=== PATIENT | male | born 1965 | race Hispanic/Latino ===

== ENCOUNTER 2017-08-04 10:48 | Emergency (ER) | payer BC ==
[2017-08-04] MEDS ORDERED: NACL 0.9% 1000 ML 1,000 ML ONE (11:56)
[2017-08-04] MEDS ORDERED: NACL 0.9% 1000 ML 1,000 ML IV ONE ×2 (12:02→14:29)
--- NOTE | 2017-08-04 12:12 | Emergency Department Report ---
ED Syncope HPI - General Chief Complaint: Syncope Stated Complaint: LOW BP Time Seen by Provider: 08/04/17 12:01 Source: patient Exam Limitations: no limitations - History of Present Illness Initial Comments: 51 year old male with a past medical history of hypertension presents to hospital status post syncopal episode while standing at work. Patient said he felt lightheaded and passed out. Denies any headache, chest pain, shortness of breath, or abdominal pain. Yesterday patient had nausea and vomiting approximately 3 episodes. He states he's been eating and drinking since. Several weeks ago patient has symptoms of nausea, vomiting, and diarrhea and abdominal pain. Patient followed up yesterday with his primary care doctor to obtain results from that illness and happened to have recurrent nausea and vomiting at the time. This is the official diagnosis was food poisoning. Paperwork from office states that received IV fluids yesterday in office but patient denies receiving an IV or fluids. Patient denies any pain or symptoms at this time He has not had any nausea, vomiting, or diarrhea today. He did take his lisinopril 20 mg this morning and presents to the ER with low blood pressure. PMD: Dr. Monahan - Related Data Allergies/Adverse Reactions: Allergies No Known Allergies Allergy (Unverified 08/04/17 11:46) Home Medications: Ambulatory Orders Ondansetron [Zofran Odt] 4 mg PO Q8HR PRN #15 tab.rapdis 08/04/17 ED Review of Systems ROS: Stated complaint: LOW BP Other details as noted in HPI Comment: All other systems reviewed and negative Other: Constitutional: No fevers chills Eyes: No eye pain visual changes ENT: No ear pain or throat pain Neck: Denies pain Respiratory: Denies cough wheezing shortness of breath Cardiovascular: Denies chest pain, palpitations GI: As per HPI : Denies dysuria Musculoskeletal: Denies back pain Skin: Denies rash, lesions, erythema Neurologic: Denies headache, numbness, weakness Psychiatric: Denies suicidal ideation, hallucinations ED Past Medical Hx - Past Medical History Hx Hypertension: Yes Additional medical history: recent food poisoning - Social History Smoking Status: Current Every Day Smoker Substance Use Type: None - Medications Home Medications: Home Medications Medication Instructions Recorded Confirmed Last Taken Type Ondansetron [Zofran Odt] 4 mg PO Q8HR PRN #15 tab.rapdis 08/04/17 Unknown Rx ED Physical Exam - General Limitations: No Limitations - Other Other exam information: General: No limitations, patient is alert in no acute distress Head exam: Atraumatic, normocephalic Eyes exam: Normal appearance ENT: Moist mucous membrane, normal oropharynx Neck exam: Normal inspection, full range of motion, no meningismus nontender Respiratory exam: Clear to auscultation bilateral, no wheezes, rales, crackles Cardiovascular: Normal rate and rhythm, normal heart sounds Abdomen: Soft, nondistended, and nontender, with normal bowel sounds, no rebound, or guarding Extremity: Full range of motion normal inspection no deformity Back: Normal Inspection, full range of motion, no tenderness Neurologic: Alert, oriented x3, cranial nerves intact, no motor or sensory deficit Psychiatric: normal affect, normal mood Skin: Warm, dry, intact ED Course Vital Signs 08/04/17 08/04/17 08/04/17 11:46 12:18 13:26 Temperature 98.1 F Pulse Rate 104 H 96 H 95 H Pulse Rate [ Lying] Respiratory 16 16 16 Rate Blood Pressure 88/58 Blood Pressure 92/58 110/75 [Left] Blood Pressure [Lying] O2 Sat by Pulse 97 99 Oximetry 08/04/17 14:08 Temperature Pulse Rate Pulse Rate [ 91 H Lying] Respiratory Rate Blood Pressure Blood Pressure [Left] Blood Pressure 110/57 [Lying] O2 Sat by Pulse Oximetry - Reevaluation(s) Reevaluation #1: 08/04/17 14:33 Patient received 1 liter of IV fluids. Heart rate still increases with standing however, no longer signs of hypotension. Patient refuses further treatment and further IV fluids at this time. He states he is feeling better. ED Medical Decision Making - Lab Data Result diagrams: 08/04/17 12:22 08/04/17 12:26 Lab Results 08/04/17 08/04/17 08/04/17 Range/Units 12:22 12:26 12:26 WBC 8.0 (4.5-11.0) K/mm3 RBC 4.20 (3.65-5.03) M/mm3 Hgb 12.1 (11.8-15.2) gm/dl Hct 36.3 (35.5-45.6) % MCV 86 (84-94) fl MCH 29 (28-32) pg MCHC 33 (32-34) % RDW 14.3 (13.2-15.2) % Plt Count 207 (140-440) K/mm3 Lymph % (Auto) 18.3 (13.4-35.0) % [place] % (Auto) 6.2 (0.0-7.3) % Eos % (Auto) 0.3 (0.0-4.3) % Baso % (Auto) 0.9 (0.0-1.8) % Lymph # 1.5 (1.2-5.4) K/mm3 [place] # 0.5 (0.0-0.8) K/mm3 Eos # 0.0 (0.0-0.4) K/mm3 Baso # 0.1 (0.0-0.1) K/mm3 Seg Neutrophils % 74.3 H (40.0-70.0) % Seg Neutrophils # 5.9 (1.8-7.7) K/mm3 Sodium 142 (137-145) mmol/L Potassium 4.4 (3.6-5.0) mmol/L Chloride 102.5 (98-107) mmol/L Carbon Dioxide 27 (22-30) mmol/L Anion Gap 17 mmol/L BUN 38 H (9-20) mg/dL Creatinine 0.9 (0.8-1.5) mg/dL Estimated GFR > 60 ml/min BUN/Creatinine Ratio 42 % Glucose 93 (75-100) mg/dL Calcium 8.7 (8.4-10.2) mg/dL Total Bilirubin 0.30 (0.1-1.2) mg/dL AST 8 (5-40) units/L ALT 7 (7-56) units/L Alkaline Phosphatase 67 (35-129) units/L Total Creatine Kinase 50 L (55-170) units/L CK-MB (CK-2) 1.4 (0.0-4.0) ng/mL CK-MB (CK-2) Rel Index 2.8 (0-4) Troponin T < 0.010 (0.00-0.029) ng/mL Total Protein 5.5 L (6.3-8.2) g/dL Albumin 3.5 L (3.9-5) g/dL Albumin/Globulin Ratio 1.8 % Lipase 17 (13-60) units/L - EKG Data -: EKG Interpreted by Me EKG shows normal: sinus rhythm (97), axis (38), QRS complexes (98), ST-T waves ( no stemi/t inv) - EKG Data When compared to previous EKG there are: previous EKG unavailable - Medical Decision Making Patient's syncopal episode likely related to volujme depletion given the recent GI symptoms. BUN is elevated compared to creatinine suggesting dehydration. Hypotension improved with IV fluids. Plan to give additional IV fluids due to persistent increased heart rate with standing but patient declined. Patient signing out against medical advise but educated to continue drinking or fluids throughout the day and to return his symptoms worsen. Patient also encouraged to follow up with his primary care doctor. - Differential Diagnosis gastroenteritis, anemia, dehydration, arrhythmia Critical Care Time: No Critical care attestation.: If time is entered above; I have spent that time in minutes in the direct care of this critically ill patient, excluding procedure time. ED Disposition Clinical Impression: Dehydration, Syncope and collapse Disposition: DC-07 LEFT AGAINST MED ADVICE Is pt being admited?: No Does the pt Need Aspirin: No Condition: Stable Instructions: Syncope (ED), Dehydration (ED) Additional Instructions: You are signing out AGAINST MEDICAL ADVICE because additional IV fluids was recommended. Continue to drink plenty of fluids at home. Follow-up with your doctor as soon as possible further evaluation and treatment Prescriptions: Ondansetron [Zofran Odt] 4 mg PO Q8HR PRN #15 tab.rapdis PRN Reason: Nausea And Vomiting Referrals: PRIMARY CARE, [Primary Care Provider] - BRIANA Forms: AMA Form Time of Disposition: 14:36
[2017-08-04 12:40] LABS: Basophils # (Auto) 0.1 K/mm3 (0.0-0.1); Basophils % (Auto) 0.9 % (0.0-1.8); Eosinophils % (Auto) 0.3 % (0.0-4.3); Hematocrit 36.3 % (35.5-45.6); Hemoglobin 12.1 gm/dl (11.8-15.2); Lymphocytes # (Auto) 1.5 K/mm3 (1.2-5.4); Lymphocytes % (Auto) 18.3 % (13.4-35.0); Mean Corpuscular HGB Conc 33 % (32-34); Mean Corpuscular Hemoglobin 29 pg (28-32); Mean Corpuscular Volume 86 fl (84-94); Monocytes # (Auto) 0.5 K/mm3 (0.0-0.8); Monocytes % (Auto) 6.2 % (0.0-7.3); Platelet Count 207 K/mm3 (140-440); Red Cell Distribution Width 14.3 % (13.2-15.2)
[2017-08-04 12:54] LABS: Creatine Kinase MB 1.4 ng/mL (0.0-4.0)
[2017-08-04 12:55] LABS: Alanine Aminotransferase 7 units/L (7-56); Albumin 3.5 g/dL (3.9-5); BUN/Creatinine Ratio 42; Blood Urea Nitrogen 38 mg/dL (9-20); Calcium 8.7 mg/dL (8.4-10.2); Hemolysis Index 6
[2017-08-04 14:11] VITALS: BP 110/57
== END 2017-08-04 14:51 | disposition left against medical advice (07) ==
LOC: ED 10:48
DX: E86.0 Dehydration (principal); R55 Syncope and collapse; I10 Essential (primary) hypertension; F17.200 Nicotine dependence, unspecified, uncomplicated
CPT/HCPCS: 36415; 80053; 82550; 82553; 83690; 84484; 85025; 93005; 93010; 96360; 99284; J7030

== ENCOUNTER 2017-08-05 11:48 | Inpatient (IN) | payer BC ==
--- NOTE | 2017-08-05 12:35 | Cat Scan Report ---
CT scan of head without IV contrast: History: Injury. Findings: Ventricles are normal in size and midline in location. Mild volume loss. No evidence of acute ischemia, hemorrhage or mass. No extra-axial fluid collection. Normal brainstem and cerebellum. Impression: No acute intracranial abnormality.
[2017-08-05 12:50] LABS: Basophils # (Auto) 0.1 K/mm3 (0.0-0.1); Basophils % (Auto) 0.8 % (0.0-1.8); Eosinophils # (Auto) 0.1 K/mm3 (0.0-0.4); Eosinophils % (Auto) 1.4 % (0.0-4.3); Hematocrit 27.5 % (35.5-45.6); Hemoglobin 8.9 gm/dl (11.8-15.2); Lymphocytes # (Auto) 1.7 K/mm3 (1.2-5.4); Lymphocytes % (Auto) 16.6 % (13.4-35.0); Mean Corpuscular HGB Conc 32 % (32-34); Mean Corpuscular Hemoglobin 28 pg (28-32); Mean Corpuscular Volume 87 fl (84-94); Monocytes # (Auto) 0.4 K/mm3 (0.0-0.8); Monocytes % (Auto) 3.9 % (0.0-7.3); Platelet Count 195 K/mm3 (140-440); Red Blood Count 3.17 M/mm3 (3.65-5.03); Red Cell Distribution Width 14.3 % (13.2-15.2)
[2017-08-05 12:59] LABS: Alanine Aminotransferase 7 units/L (7-56); Albumin 2.9 g/dL (3.9-5); BUN/Creatinine Ratio 43; Blood Urea Nitrogen 26 mg/dL (9-20); Calcium 7.9 mg/dL (8.4-10.2); Hemolysis Index 3
[2017-08-05] MEDS ORDERED: NACL 0.9% 1000 ML 1,000 ML IV ONE (13:33)
[2017-08-05 13:57] LABS: Hematocrit 25.1 % (35.5-45.6); Hemoglobin 8.2 gm/dl (11.8-15.2)
--- NOTE | 2017-08-05 14:20 | Gastroenterology Consultation ---
History of Present Illness - Reason for Consult Consult date: 08/05/17 UGI bleeding Requesting physician: SUNIL DAWKINS - History of Present Illness The patient is a 51 year old man for whom consultation was requested for UGI bleeding. He came to the ER yesterday for a syncopal event at work and was found to be severely dehydrated. His Hgb was 12 BUN was 38. Patient was given fluids, but signed out AMA. He returned today after another syncopal event and now emesis of a large amount of coffee colored blood and passing dark stools. He denies abdominal pain, history of PUD, prior GI bleeding, weight loss or known liver disease. He drinks at least 4 beers daily and smokes a half pack of cigarettes daily. Past History Past Medical History: hypertension Past Surgical History: No surgical history Social history: , smoking, other (ETOH use of 4 beers per day) Family history: no significant family history Medications and Allergies Allergies Allergy/AdvReac Type Severity Reaction Status Date / Time No Known Allergies Allergy Verified 08/05/17 12:02 Home Medications Medication Instructions Recorded Confirmed Last Taken Type Ondansetron [Zofran Odt] 4 mg PO Q8HR PRN #15 tab.rapdis 08/04/17 Unknown Rx Active Meds: Active Medications Sodium Chloride (Nacl 0.9% 1000 Ml) 1,000 mls @ 999 mls/hr IV BOLUS ONE Stop: 08/05/17 14:33 Last Admin: 08/05/17 13:43 Dose: 999 mls/hr BP medication Review of Systems - Review of Systems Constitutional: no weight loss, no weight gain Eyes: no change in vision Ears, Nose, Throat: no decreased hearing, no epistaxis Cardiovascular: syncope, no chest pain, no edema, no rapid/irregular heart beat , no shortness of breath Respiratory: no cough, no shortness of breath, no wheezing, no home oxygen Gastrointestinal: nausea, vomiting, hematemesis, coffee ground emesis, melena, no abdominal pain, no diarrhea, no constipation, no change in bowel habits, no hematochezia, no jaundice Rectal: no pain Male Genitourinary: deferred Musculoskeletal: no gait dysfunction, no joint pain, no muscle pain Integumentary: no rash, no pruritis, no jaundice Neurological: no head injury, no paralysis, no memory loss Psychiatric: no anxiety, no memory loss, no change in appetite Endocrine: no cold intolerance, no heat intolerance Hematologic/Lymphatic: no easy bruising, no easy bleeding, no lymphadenopathy Allergic/Immunologic: no wheezing, no angioedema Exam - Constitutional Vital Signs: Temp Pulse Resp BP Pulse Ox 97.8 F 103 H 19 101/63 100 08/05/17 12:16 08/05/17 12:16 08/05/17 12:16 08/05/17 12:16 08/05/17 12:16 General appearance: no acute distress, well-nourished, other (Abrasion on left forehead) - EENT Eyes: PERRL ENT: hearing intact, clear oral mucosa, dentition normal - Neck Neck: supple, normal ROM, no masses or JVD - Respiratory Respiratory effort: normal Respiratory: bilateral: CTA - Breasts Breasts: deferred - Cardiovascular Rhythm: regular Heart Sounds: Present: S1 & S2. Absent: gallop, rub Extremities: pulses intact, No edema, normal color, Full ROM - Gastrointestinal General gastrointestinal: Present: soft, non-tender, non-distended, distended. Absent: hepatomegaly, splenomegaly, mass Rectal Exam: mass (refused) - Genitourinary Male Genitourinary: deferred - Integumentary Integumentary: Present: clear, warm, dry - Neurologic Neurological: alert and oriented x3, strength equal bilaterally - Psychiatric Psychiatric: appropriate mood/affect, intact judgment & insight, memory intact - Labs CBC & Chem 7: 08/05/17 13:45 08/05/17 12:29 Lab Results: Laboratory Results - last 24 hr 08/05/17 08/05/17 08/05/17 12:29 12:29 13:45 WBC 10.0 RBC 3.17 L Hgb 8.9 L D 8.2 L Hct 27.5 L D 25.1 L MCV 87 MCH 28 MCHC 32 RDW 14.3 Plt Count 195 Lymph % (Auto) 16.6 [place] % (Auto) 3.9 Eos % (Auto) 1.4 Baso % (Auto) 0.8 Lymph # 1.7 [place] # 0.4 Eos # 0.1 Baso # 0.1 Seg Neutrophils % 77.3 H Seg Neutrophils # 7.7 Sodium 142 Potassium 4.0 Chloride 105.6 Carbon Dioxide 26 Anion Gap 14 BUN 26 H Creatinine 0.6 L Estimated GFR > 60 BUN/Creatinine Ratio 43 Glucose 123 H Calcium 7.9 L Total Bilirubin 0.40 AST 12 ALT 7 Alkaline Phosphatase 53 Total Protein 4.5 L Albumin 2.9 L Albumin/Globulin Ratio 1.8 Assessment and Plan - Patient Problems (1) UGIB (upper gastrointestinal bleed) Current Visit: Yes Status: Acute Plan to address problem: UGI bleeding. Presently stable. Rule out PUD, less likely varices. Will obtain coags. Patient advised of my recommendation for EGD tomorrow AM after further stabilization. He is in agreement. Coags ordered. (2) Dehydration Current Visit: No Status: Acute
[2017-08-05 14:50] LABS: INR 1.16 (0.87-1.13)
--- NOTE | 2017-08-05 15:34 | Cat Scan Report ---
FINAL REPORT EXAM: CT ABDOMEN PELVIS W CON HISTORY: Hematemesis TECHNIQUE: CT examination of the ABDOMEN after IV contrast CT examination of the PELVIS after IV contrast PRIORS: None. FINDINGS: The gallbladder is contracted. The wall appears thickened and hyperemic. There is trace pericholecystic fluid. No evidence of gallstone. Normal caliber common bile duct. Findings raise suspicion of cholecystitis. Normal-appearing liver, adrenals, pancreas, and spleen. Intact normal appearing abdominal aorta with moderate calcified and noncalcified atheromatous plaque. Normal caliber IVC. Normal-appearing kidneys and ureters. Very small fat containing umbilical hernia. Very small fat containing left inguinal hernia. Normal-appearing stomach. Nonspecific slight mural thickening and adjacent fat stranding in the proximal duodenum. This may be reactive related to the gallbladder findings. Other possibilities include edema, inflammation, infection, or ulcer disease. No small bowel distention in the abdomen and pelvis. No pelvic free fluid. Normal-appearing prostate, seminal vesicles, and rectum. Nonspecific mural thickening in the urinary bladder may be artifact of decompression. Consider also cystitis in the appropriate clinical setting. Normal-appearing sigmoid colon. No gross ascites, free air, or colonic distention. Appendix not separately identified. No pericecal inflammation. IMPRESSION: Gallbladder findings raise suspicion of cholecystitis Proximal duodenal findings may be reactive from adjacent gallbladder changes. The differential includes duodenal edema, inflammation, infection, or ulcer disease Urinary bladder mural thickening may be artifact of decompression. Differential includes cystitis
--- NOTE | 2017-08-05 16:27 | History and Physical Report ---
History of Present Illness Chief complaint: I passed out History of present illness: 51 YO Male with HTN, ETOH Dependence, Nicotine Dependence, Malnutrition presents to ED for evaluation. Patient was here yesterday for syncope and left AMA because he did not want to wait for completion of workup. Patient states that he had an episode of vomiting bright red blood today, and subsequently passed out and his head hit the fish tank at his home. EMS notified and patient transported to [facility] for evaluation. Pt denies fever, chills, CP, Palpitations, seizure, auditory/visual hallucinations, loss of bowel/bladder continence, prolonged travel/immobility, leg swelling, calf pain, unintentional weight loss , night sweats, dysphagia, odynophagia, individual/family history of DVT/PE. Pt drinks at least 4 beers daily and smokes a half pack of cigarettes daily. P Past History Past Medical History: hypertension Past Surgical History: No surgical history Social history: , smoking, alcohol abuse, other (ETOH use of 4 beers per day) Family history: no significant family history Medications and Allergies Allergies Allergy/AdvReac Type Severity Reaction Status Date / Time No Known Allergies Allergy Verified 08/05/17 16:36 Home Medications Medication Instructions Recorded Confirmed Last Taken Type Ondansetron [Zofran Odt] 4 mg PO Q8HR PRN #15 tab.rapdis 08/04/17 Unknown Rx Review of Systems Constitutional: no weight loss, no weight gain, no fever, no chills Ears, nose, mouth and throat: no ear pain, no ear discharge, no tinnitis, no decreased hearing, no nose pain Cardiovascular: syncope, no chest pain, no orthopnea, no palpitations, no rapid/ irregular heart beat, no edema Respiratory: no cough, no cough with sputum, no excessive sputum, no hemoptysis , no shortness of breath Gastrointestinal: vomiting, hematemesis, no BRBPR, no melena, no loss of appetite, no early satiety, no belching, no dyspepsia/bloating, no early satiety Genitourinary Male: no hematuria, no flank pain, no discharge, no urinary frequency, no urinary hesitancy Rectal: no pain, no incontinence, no bleeding Musculoskeletal: no neck stiffness, no neck pain, no shooting arm pain, no arm numbness/tingling, no low back pain Integumentary: no rash, no pruritis, no redness, no sores Neurological: no transient paralysis, no paralysis, no weakness, no parathesias , no numbness Psychiatric: no anxiety, no memory loss, no change in sleep habits, no sleep disturbances, no insomnia, no hypersomnia Endocrine: no cold intolerance, no heat intolerance, no polyphagia, no excessive thirst, no polydipsia, no polyuria Hematologic/Lymphatic: no easy bruising, no easy bleeding, no lymphadenopathy, no lymphedema Allergic/Immunologic: no urticaria, no allergic rhinitis, no wheezing, no persistent infections, no anaphylaxis Exam - Constitutional Vitals: Temp Pulse Resp BP Pulse Ox 97.8 F 103 H 19 101/63 100 08/05/17 12:16 08/05/17 12:16 08/05/17 12:16 08/05/17 12:16 08/05/17 12:16 General appearance: Present: mild distress, cachectic, disheveled - EENT Eyes: Present: PERRL ENT: hearing intact, clear oral mucosa - Neck Neck: Present: supple, normal ROM - Respiratory Respiratory effort: normal Respiratory: bilateral: CTA - Cardiovascular Heart Sounds: Present: S1 & S2. Absent: rub, click - Extremities Extremities: pulses symmetrical, No edema Peripheral Pulses: within normal limits - Abdominal General gastrointestinal: Present: soft, non-tender, non-distended, normal bowel sounds Male genitourinary: Present: normal - Integumentary Integumentary: Present: clear, warm, dry - Musculoskeletal Musculoskeletal: gait normal, strength equal bilaterally - Psychiatric Psychiatric: appropriate mood/affect, intact judgment & insight - Neurologic Neurologic: CNII-XII intact, moves all extremities Results - Labs CBC & Chem 7: 08/05/17 13:45 08/05/17 12:29 Labs: Abnormal lab results 08/05/17 08/05/17 08/05/17 Range/Units 12:29 12:29 13:45 RBC 3.17 L (3.65-5.03) M/mm3 Hgb 8.9 L D 8.2 L (11.8-15.2) gm/dl Hct 27.5 L D 25.1 L (35.5-45.6) % Seg Neutrophils % 77.3 H (40.0-70.0) % PT (12.2-14.9) Sec. INR (0.87-1.13) BUN 26 H (9-20) mg/dL Creatinine 0.6 L (0.8-1.5) mg/dL Glucose 123 H (75-100) mg/dL Calcium 7.9 L (8.4-10.2) mg/dL Total Protein 4.5 L (6.3-8.2) g/dL Albumin 2.9 L (3.9-5) g/dL 08/05/17 Range/Units 14:29 RBC (3.65-5.03) M/mm3 Hgb (11.8-15.2) gm/dl Hct (35.5-45.6) % Seg Neutrophils % (40.0-70.0) % PT 15.4 H (12.2-14.9) Sec. INR 1.16 H (0.87-1.13) BUN (9-20) mg/dL Creatinine (0.8-1.5) mg/dL Glucose (75-100) mg/dL Calcium (8.4-10.2) mg/dL Total Protein (6.3-8.2) g/dL Albumin (3.9-5) g/dL Assessment and Plan - Patient Problems (1) Unconscious state Current Visit: Yes Status: Acute Plan to address problem: CT head, neuro checks, fall precautions, supportive care. (2) EtOH dependence Current Visit: Yes Status: Acute Qualifiers: Substance use status: in withdrawal Complication of substance-induced condition: uncomplicated Qualified Code(s): F10.230 - Alcohol dependence with withdrawal, uncomplicated Plan to address problem: CIWA protocol, Banana bag, supportive care. (3) Nicotine dependence Current Visit: Yes Status: Acute Plan to address problem: Pt counseled, Pt refused to pick quit date (4) UGIB (upper gastrointestinal bleed) Current Visit: Yes Status: Acute Plan to address problem: PPI therpay, bowel rest, NPO after midnight, GI consulted, endoscopy as per GI team, Serial CBC, HGB stable. (5) Anemia Current Visit: Yes Status: Acute Plan to address problem: Serial CBC, Hgb stable, no transfusion at this time. (6) DVT prophylaxis Current Visit: Yes Status: Acute
[2017-08-05] MEDS ORDERED: TYLENOL PO PRN (16:28)
[2017-08-05] MEDS ORDERED: ZOFRAN IV PRN (16:28)
[2017-08-05] MEDS ORDERED: PROVENTIL IH PRN (16:28)
[2017-08-05] MEDS ORDERED: VITAMIN B-1 100 MG, FOLVITE 1 MG, INFUVITE 10 ML in NACL 0.9% 1000 ML 1,000 ML IV ONE (16:32)
[2017-08-05 17:13] LABS: RBC,Urine < 1.0 /HPF (0.0-6.0)
[2017-08-05 17:14] LABS: WBC,Urine < 1.0 /HPF (0.0-6.0)
--- NOTE | 2017-08-05 17:45 | Emergency Department Report ---
ED Syncope HPI - General Chief Complaint: Syncope Stated Complaint: PASSED OUT Source: patient, EMS - History of Present Illness Initial Comments: Patient had episode of vomiting bright red blood and then syncope, whereby his head hit the fish tank at home. Patient was here yesterday for syncope and left AMA because he did not want to wait for completion of workup. - Related Data Allergies/Adverse Reactions: Allergies No Known Allergies Allergy (Verified 08/05/17 16:36) Home Medications: Ambulatory Orders Ondansetron [Zofran Odt] 4 mg PO Q8HR PRN #15 tab.rapdis 08/04/17 ED Review of Systems ROS: Stated complaint: PASSED OUT Other details as noted in HPI Comment: All other systems reviewed and negative Constitutional: denies: chills, fever Eyes: denies: eye pain, eye discharge, vision change ENT: denies: ear pain, throat pain Respiratory: denies: cough, shortness of breath, wheezing Cardiovascular: denies: chest pain, palpitations Endocrine: no symptoms reported Gastrointestinal: denies: abdominal pain, nausea, diarrhea Genitourinary: denies: urgency, dysuria Musculoskeletal: denies: back pain, joint swelling, arthralgia Skin: denies: rash, lesions Neurological: denies: headache, weakness, paresthesias Psychiatric: denies: anxiety, depression Hematological/Lymphatic: denies: easy bleeding, easy bruising ED Past Medical Hx - Past Medical History Previous Medical History?: Yes Hx Hypertension: Yes Additional medical history: recent food poisoning - Surgical History Past Surgical History?: No - Social History Smoking Status: Current Every Day Smoker Substance Use Type: None - Medications Home Medications: Home Medications Medication Instructions Recorded Confirmed Last Taken Type Ondansetron [Zofran Odt] 4 mg PO Q8HR PRN #15 tab.rapdis 08/04/17 Unknown Rx ED Physical Exam - General Limitations: No Limitations General appearance: alert, in no apparent distress, other (abrasion across his forehead) - Head Head exam: Present: atraumatic, normocephalic, other (Contusion to forehead) - Eye Eye exam: Present: normal appearance - ENT ENT exam: Present: mucous membranes moist - Neck Neck exam: Present: normal inspection - Respiratory Respiratory exam: Present: normal lung sounds bilaterally. Absent: respiratory distress - Cardiovascular Cardiovascular Exam: Present: regular rate, normal rhythm. Absent: systolic murmur, diastolic murmur, rubs, gallop - GI/Abdominal GI/Abdominal exam: Present: soft, tenderness (mid-epigastric - moderate), normal bowel sounds. Absent: distended, guarding, rebound, rigid, hyperactive bowel sounds, hypoactive bowel sounds - Rectal Rectal exam: Present: deferred - Extremities Exam Extremities exam: Present: normal inspection - Back Exam Back exam: Present: normal inspection - Neurological Exam Neurological exam: Present: alert, oriented X3 - Psychiatric Psychiatric exam: Present: normal affect, normal mood - Skin Skin exam: Present: warm, dry, intact, normal color. Absent: rash ED Course Vital Signs 08/05/17 08/05/17 08/05/17 12:02 12:16 12:30 Temperature 97.7 F 97.8 F Pulse Rate 115 H 124 H 119 H Respiratory 23 20 Rate Blood Pressure 97/73 Blood Pressure 101/63 [Left] O2 Sat by Pulse 98 100 100 Oximetry 08/05/17 08/05/17 08/05/17 13:00 13:30 14:00 Temperature Pulse Rate 120 H 123 H 108 H Respiratory 17 18 18 Rate Blood Pressure Blood Pressure [Left] O2 Sat by Pulse 100 100 100 Oximetry 08/05/17 08/05/17 08/05/17 14:30 16:14 16:30 Temperature Pulse Rate 107 H 105 H 98 H Respiratory 22 18 18 Rate Blood Pressure 105/73 Blood Pressure [Left] O2 Sat by Pulse 100 98 97 Oximetry 08/05/17 17:00 Temperature Pulse Rate 95 H Respiratory 21 Rate Blood Pressure 104/80 Blood Pressure [Left] O2 Sat by Pulse 100 Oximetry - Reevaluation(s) Reevaluation #1: 08/05/17 17:49 Patient is still experiencing abdominal pain. ED Medical Decision Making - Lab Data Result diagrams: 08/05/17 13:45 08/05/17 12:29 - EKG Data -: EKG Interpreted by Me EKG shows normal: sinus rhythm, axis, QRS complexes, ST-T waves Rate: tachycardia (114) - EKG Data When compared to previous EKG there are: no significant change - Radiology Data Radiology results: report reviewed GB Disease on CT Abd/Pelvis; Head CT normal. Critical Care Time: No Critical care attestation.: If time is entered above; I have spent that time in minutes in the direct care of this critically ill patient, excluding procedure time. ED Disposition Clinical Impression: Dehydration, Syncope and collapse, UGIB (upper gastrointestinal bleed) Disposition: DC-09 OP ADMIT IP TO THIS HOSP Is pt being admited?: Yes Does the pt Need Aspirin: No Condition: Stable
[2017-08-05] MEDS: MORPHINE IV PRN (18:13)
[2017-08-05] MEDS ORDERED: ATIVAN IV PRN (18:15)
[2017-08-05 18:59] LABS: Amphetamine Screen,Urine PRESUMPTIVE NEGATIVE; Benzodiazepines Screen,Urine PRESUMPTIVE NEGATIVE; Cannabinoid Screen,Urine PRESUMPTIVE NEGATIVE; Cocaine Screen,Urine PRESUMPTIVE NEGATIVE; Methadone Screen,Urine PRESUMPTIVE NEGATIVE; Opiate Screen,Urine PRESUMPTIVE NEGATIVE
[2017-08-06] MEDS ORDERED: NACL 0.9% 1000 ML 1,000 ML ONE (07:58)
[2017-08-06] MEDS ORDERED: WATER FOR IRRIG STERILE IR ONE ×2 (08:35→09:28)
--- NOTE | 2017-08-06 08:51 | Anesthesia Consultation ---
Anesthesia Consult and Med Hx Date of service: 08/06/17 - Airway Anesthetic Teeth Evaluation: Good ROM Head & Neck: Adequate Mental/Hyoid Distance: Adequate Mallampati Class: Class II Intubation Access Assessment: Probably Good - Pulmonary Exam CTA: Yes - Cardiac Exam Cardiac Exam: RRR - Pre-Operative Health Status ASA Pre-Surgery Classification: ASA3 Proposed Anesthetic Plan: MAC - Pulmonary Hx Smoking: Yes Hx Asthma: No COPD: No Hx Pneumonia: No - Cardiovascular System Hx Hypertension: Yes (10 years ago) - Gastrointestinal Hx Ulcer: Yes (PUD) Hx Gastroesophageal Reflux Disease: Yes - Endocrine Hx End Stage Renal Disease: No - Other Systems Hx Alcohol Use: Yes (4 beers/day)
--- NOTE | 2017-08-06 08:51 | Anesthesia Day of Surgery ---
Anesthesia Day of Surgery - Day of Surgery Patient Examined: Yes Patient H&P Reviewed: Yes Patient is NPO: Yes
[2017-08-06] MEDS ORDERED: DIPRIVAN 10 MG/ML IV ONE ×2 (08:55→09:16)
--- NOTE | 2017-08-06 09:24 | Operative Report ---
Operative Report Operative Report: Date of procedure: 08/06/2017 Procedure: Esophagogastroduodenoscopy with biopsies of prepyloric ulcer. Preprocedure diagnosis: Upper GI bleed Post procedure diagnosis: 2 cm ulcer crater in the pyloric area extending into the duodenal bulb. Edema and possible extrinsic compression and infiltration by appearance is of concern. Endoscopist: Dr. Shukla Anesthesia: Monitored anesthesia care per anesthesia department Medications: Propofol per anesthesia Estimated blood loss: 0 After careful discussion of the nature and purpose of the procedure as well as details the technique risks benefits and alternatives consent was obtained. The patient was placed in the left lateral decubitus position and medicated per anesthesia. The tip of the [employer] EQ 570 video scope was passed per orum under direct vision into the esophagus and advanced into the stomach and descending duodenum. There was no blood in the upper digestive tract. There was the impression of extrinsic compression and distortion of the anatomy in the pyloric complex. The descending duodenum was normal. The scope was withdrawn into the stomach and the stomach then gently insufflated with air. The antrum revealed distortion and the impression of extrinsic compression or infiltration in the prepyloric area extending into the proximal bulb. A 2 cm ulcer crater was present which was either in the prepyloric area extending through the pylorus or possibly in the bulb. The anatomy was somewhat effaced making it difficult to discern the actual location of the ulcer. Limited biopsies were obtained from the edge of the ulcer crater. The stomach was further insufflated and the scope was then retroflexed and partially withdrawn. The cardia revealed a hiatus hernia. The fundus, and body of the stomach were within normal limits and easily distensible.The scope was then withdrawn in the forward position. The esophagogastric junction was at 40 cm. A medium size sliding hiatus hernia was present. The esophageal body was normal throughout. The procedure was was well tolerated and the patient was observed in recovery. Impressions: 2 cm ulcer in the prepyloric make extending into the bulb with surrounding edema and the impression of external compression or possibly infiltration by appearance. Medium size sliding hiatus hernia. Normal esophagus. Plan: Await biopsies. CT scan of the abdomen thin cuts of the pancreas to assess for possible infiltrating disease. Continue PPI therapy. Electronically signed: Bernard Shukla MD
--- NOTE | 2017-08-06 09:32 | Post Anesthesia Evaluation ---
- Post Anesthesia Evaluation Patient Participated: Yes Airway Patent: Yes Stable Respiratory Function: Yes Temp > 96.8F: Yes Pain Manageable: Yes Adequeate Hydration: Yes Anesthesia Complications: No
[2017-08-06 11:12] LABS: Basophils # (Auto) 0.1 K/mm3 (0.0-0.1); Basophils % (Auto) 1.3 % (0.0-1.8); Eosinophils % (Auto) 0.8 % (0.0-4.3); Hematocrit 22.6 % (35.5-45.6); Hemoglobin 7.4 gm/dl (11.8-15.2); Lymphocytes # (Auto) 1.4 K/mm3 (1.2-5.4); Lymphocytes % (Auto) 25.8 % (13.4-35.0); Mean Corpuscular HGB Conc 33 % (32-34); Mean Corpuscular Hemoglobin 28 pg (28-32); Mean Corpuscular Volume 87 fl (84-94); Monocytes # (Auto) 0.4 K/mm3 (0.0-0.8); Monocytes % (Auto) 7.8 % (0.0-7.3); Platelet Count 167 K/mm3 (140-440); Red Blood Count 2.61 M/mm3 (3.65-5.03); Red Cell Distribution Width 14.2 % (13.2-15.2)
[2017-08-06 11:47] LABS: BUN/Creatinine Ratio 33; Blood Urea Nitrogen 20 mg/dL (9-20); Calcium 8.3 mg/dL (8.4-10.2); Hemolysis Index 1
[2017-08-06] MEDS ORDERED: NACL 0.9% 500 ML 500 ML IV NR (12:40)
[2017-08-06] MEDS: PROTONIX IV SCH ×2 (12:55→22:31)
--- NOTE | 2017-08-06 14:59 | Cat Scan Report ---
FINAL REPORT EXAM: CT ABDOMEN PELVIS W CON HISTORY: atypical prepyloric ulcer. R/o pancreatic neoplasm TECHNIQUE: CT abdomen and pelvis with intravenous contrast PRIORS: None. FINDINGS: No acute abnormality identified in the lung bases. No focal abnormality identified within the liver parenchyma. The spleen demonstrates normal size and attenuation. No evidence for pancreatic ductal dilatation or dilatation of the common bile duct. The dorsal and ventral pancreatic ducts do not appear to be communicating consideration given to. The gruber of the and 1st 2nd portion of the duodenum appear identified status. The gallbladder is nondistended. Pancreas divisum The kidneys demonstrate symmetric contrast enhancement. No evidence of hydronephrosis. The adrenal glands are unremarkable Abdominal aorta is normal in caliber. No pathologically enlarged lymph nodes are identified. No signs of free fluid or free air No evidence of small bowel dilatation. Colon is nondistended. No pericolonic inflammatory change. Urinary bladder is unremarkable. IMPRESSION: Consideration given to pancreas divisum. Followup MRCP suggested if continued clinical concern. No evidence for acute obstructive process Wall thickening of the 1st and 2nd portions of the duodenum likely reflecting duodenitis.
--- NOTE | 2017-08-06 15:58 | Progress Note ---
Assessment and Plan Assessment and plan: Acute GI bleed. had EGD today revealing ulcer in pyloric area extending art duodenal bulb. See report for details. Continue Protonix Alcohol abuse. On CIWA Anemia due to acute blood loss. Hgb 7.4 now. Will transfuse 1 Unit PRBC DVT prophylaxis. SCDs only because GI bleed Full code status History Interval history: Patient presented with hematemesis Syncope Hospitalist Physical - Physical exam Narrative exam: GEN APPEARANCE : Not in acute distress, HEENT: Normocephalic, Atraumatic NECK : supple, no JVD LUNGS: Clear to auscultation bilaterally, no rales, no wheeze HEART: S1 and S2 regular, no murmurs, rubs or gallop ABD: Soft, mild tender epigastric area, no rebound tenderness,non distended, normal bowel sounds EXT: No edema, no clubbing, no cyanosis NEURO: Awake,alert, oriented x 3, no focal signs Psych: Normal mood - Constitutional Vitals: Temp Pulse Resp BP Pulse Ox 98.4 F 109 H 18 135/90 96 08/06/17 09:15 08/06/17 09:30 08/06/17 09:30 08/06/17 09:30 08/06/17 09:30 Results - Labs CBC & Chem 7: 08/06/17 10:30 08/06/17 10:30 Labs: Laboratory Last Values WBC 5.4 K/mm3 (4.5-11.0) 08/06/17 10:30 RBC 2.61 M/mm3 (3.65-5.03) L 08/06/17 10:30 Hgb 7.4 gm/dl (11.8-15.2) L 08/06/17 10:30 Hct 22.6 % (35.5-45.6) L 08/06/17 10:30 MCV 87 fl (84-94) 08/06/17 10:30 MCH 28 pg (28-32) 08/06/17 10:30 MCHC 33 % (32-34) 08/06/17 10:30 RDW 14.2 % (13.2-15.2) 08/06/17 10:30 Plt Count 167 K/mm3 (140-440) 08/06/17 10:30 Lymph % (Auto) 25.8 % (13.4-35.0) 08/06/17 10:30 [place] % (Auto) 7.8 % (0.0-7.3) H 08/06/17 10:30 Eos % (Auto) 0.8 % (0.0-4.3) 08/06/17 10:30 Baso % (Auto) 1.3 % (0.0-1.8) 08/06/17 10:30 Lymph # 1.4 K/mm3 (1.2-5.4) 08/06/17 10:30 [place] # 0.4 K/mm3 (0.0-0.8) 08/06/17 10:30 Eos # 0.0 K/mm3 (0.0-0.4) 08/06/17 10:30 Baso # 0.1 K/mm3 (0.0-0.1) 08/06/17 10:30 Seg Neutrophils % 64.3 % (40.0-70.0) 08/06/17 10:30 Seg Neutrophils # 3.5 K/mm3 (1.8-7.7) 08/06/17 10:30 PT 15.4 Sec. (12.2-14.9) H 08/05/17 14:29 INR 1.16 (0.87-1.13) H 08/05/17 14:29 Sodium 146 mmol/L (137-145) H 08/06/17 10:30 Potassium 3.5 mmol/L (3.6-5.0) L 08/06/17 10:30 Chloride 108.9 mmol/L (98-107) H 08/06/17 10:30 Carbon Dioxide 25 mmol/L (22-30) 08/06/17 10:30 Anion Gap 16 mmol/L 08/06/17 10:30 BUN 20 mg/dL (9-20) 08/06/17 10:30 Creatinine 0.6 mg/dL (0.8-1.5) L 08/06/17 10:30 Estimated GFR > 60 ml/min 08/06/17 10:30 BUN/Creatinine Ratio 33 % 08/06/17 10:30 Glucose 112 mg/dL (75-100) H 08/06/17 10:30 Calcium 8.3 mg/dL (8.4-10.2) L 08/06/17 10:30 Total Bilirubin 0.40 mg/dL (0.1-1.2) 08/05/17 12:29 AST 12 units/L (5-40) 08/05/17 12:29 ALT 7 units/L (7-56) 08/05/17 12:29 Alkaline Phosphatase 53 units/L (35-129) 08/05/17 12:29 Total Protein 4.5 g/dL (6.3-8.2) L 08/05/17 12:29 Albumin 2.9 g/dL (3.9-5) L 08/05/17 12:29 Albumin/Globulin Ratio 1.8 % 08/05/17 12:29 Urine WBC (Auto) < 1.0 /HPF (0.0-6.0) 08/05/17 17:03 Urine RBC (Auto) < 1.0 /HPF (0.0-6.0) 08/05/17 17:03 Urine Opiates Screen Presumptive negative 08/05/17 17:03 Urine Methadone Screen Presumptive negative 08/05/17 17:03 Ur Barbiturates Screen Presumptive negative 08/05/17 17:03 Ur Phencyclidine Scrn Presumptive negative 08/05/17 17:03 Ur Amphetamines Screen Presumptive negative 08/05/17 17:03 U Benzodiazepines Scrn Presumptive negative 08/05/17 17:03 Urine Cocaine Screen Presumptive negative 08/05/17 17:03 U Marijuana (THC) Screen Presumptive negative 08/05/17 17:03 Drugs of Abuse Note Disclamer 08/05/17 17:03 Blood Type O POSITIVE 08/05/17 13:45 Antibody Screen Negative 08/05/17 13:45 Crossmatch See Detail 08/05/17 13:45
[2017-08-06] MEDS: MORPHINE IV PRN (18:59)
[2017-08-07 06:47] VITALS: BP 132/87
--- NOTE | 2017-08-07 09:33 | Gastroenterology Progress Note ---
Assessment and Plan 1.Upper GI bleed -s/p EGD revealing 2cm ulcer in the pyloric area extending into duodenal bulb with surrounding edema and the impression of external compression or possible infiltration by appearance -Bx results pending- f/u results in clinic -Abd CT- showed possible pancreas divisum but no mass; no recommendation for MRCP at this time -clinically pt w/o complains or signs of active bleeding overnight or this am and tolerating clears -H/H for today pending- if stable, pt is okay to be d/c per GI standpoint on daily PPI with f/u clinic appt in 2 weeks -advance diet -continue PPI and supportive care -will sign off, please re-consult if needed Subjective Date of service: 08/07/17 Principal diagnosis: GI bleed Interval history: Patient resting in bed. No acute distress. No signs of active bleeding overnight or this am. Tolerating clears. Objective - Constitutional Vitals: Temp Pulse Resp BP Pulse Ox 98.9 F 85 16 132/87 96 08/07/17 06:43 08/07/17 06:43 08/07/17 06:43 08/07/17 06:43 08/07/17 06:43 General appearance: no acute distress - EENT Eyes: PERRL, EOM intact ENT: hearing intact - Respiratory Respiratory: bilateral: CTA - Cardiovascular Rhythm: regular Heart Sounds: Present: S1 & S2 - Gastrointestinal General gastrointestinal: Present: soft, non-tender, non-distended, normal bowel sounds - Integumentary Integumentary: Present: warm, dry - Neurologic Neurological: alert and oriented x3 - Labs CBC & Chem 7: 08/06/17 10:30 08/06/17 10:30 Labs: Laboratory Results - last 24 hr 08/05/17 08/06/17 08/06/17 13:45 10:30 10:30 WBC 5.4 RBC 2.61 L Hgb 7.4 L Hct 22.6 L MCV 87 MCH 28 MCHC 33 RDW 14.2 Plt Count 167 Lymph % (Auto) 25.8 [place] % (Auto) 7.8 H Eos % (Auto) 0.8 Baso % (Auto) 1.3 Lymph # 1.4 Garza # 0.4 Eos # 0.0 Baso # 0.1 Seg Neutrophils % 64.3 Seg Neutrophils # 3.5 Sodium 146 H Potassium 3.5 L Chloride 108.9 H Carbon Dioxide 25 Anion Gap 16 BUN 20 Creatinine 0.6 L Estimated GFR > 60 BUN/Creatinine Ratio 33 Glucose 112 H Calcium 8.3 L Blood Type O POSITIVE Antibody Screen Negative Crossmatch See Detail
[2017-08-07 10:18] LABS: Hematocrit 24.4 % (35.5-45.6); Hemoglobin 8.1 gm/dl (11.8-15.2); Mean Corpuscular HGB Conc 33 % (32-34); Mean Corpuscular Hemoglobin 29 pg (28-32); Mean Corpuscular Volume 86 fl (84-94); Platelet Count 176 K/mm3 (140-440); Red Blood Count 2.85 M/mm3 (3.65-5.03); Red Cell Distribution Width 14.3 % (13.2-15.2)
[2017-08-07] MEDS: PROTONIX IV SCH (10:24)
[2017-08-07 10:30] LABS: BUN/Creatinine Ratio 27; Blood Urea Nitrogen 16 mg/dL (9-20); Calcium 8.6 mg/dL (8.4-10.2); Hemolysis Index 2
--- NOTE | 2017-08-07 10:38 | Discharge Summary ---
Providers - Providers Date of Admission: 08/05/17 16:28 Attending physician: ROBERT DELEON MD 08/05/17 14:14 Consult to Physician [CONS] Urgent Consulting Provider: NAVI ROCA Reason For Exam: GI bleed Place consult to:: Dr Roca Notified:: yes Primary care physician: [employer] Hospitalization Reason for admission: upper GI bleed Condition: Stable Hospital course: 51 YO Male with HTN, ETOH Dependence, Nicotine Dependence, Malnutrition presents to ED for evaluation. Patient was here day prior to admission for syncope and left AMA because he did not want to wait for completion of workup. Patient states that he had an episode of vomiting bright red blood today, and subsequently passed out and his head hit the fish tank at his home. EMS notified and patient transported to [facility] for evaluation. Pt denies fever, chills , CP, Palpitations, seizure, auditory/visual hallucinations, loss of bowel/ bladder continence, prolonged travel/immobility, leg swelling, calf pain, unintentional weight loss, night sweats, dysphagia, odynophagia, individual/ family history of DVT/PE. Pt drinks at least 4 beers daily and smokes a half pack of cigarettes daily. Workup revealed anemia and a nonalcoholic patient the patient proceeded to have an EGD which revealed a 2 cm also in the pyloric area extending into the duodenal bulb with surrounding edema and impression of external compression or possible infiltration process. This finding was discussed with the patient and to the mother by the patient's permission. A biopsy was done and the patient will follow up outpatient with GI. Patient received a chest addition of one pack red blood cell with improved hemoglobin. Imaging studies were also consulted for possible pancreas divisum but no mass was noted. He is clinically stable at this point he understands the need to quit alcohol and tobacco use 15 minutes of counseling was provided to the patient on each. Discharge diagnosis Acute GI bleed. Secondary to pyloric ulcer Pyloric ulcer Alcohol use disorder Tobacco use disorder Anemia due to acute blood loss. Disposition: TO HOME OR SELFCARE Time spent for discharge: 35 mins Core Measure Documentation - Palliative Care Palliative Care/ Comfort Measures: Not Applicable - Core Measures Any of the following diagnoses?: none - VTE Discharge Requirements Deep Vein Thrombosis/Pulmonary Embolism Present on Admission: No Exam - Physical Exam Narrative exam: VITAL SIGNS: Reviewed. GENERAL: The patient appeared well nourished and normally developed. Vital signs as documented. HEAD: No signs of head trauma. EYES: Pupils are equal. Extraocular motions intact. EARS: Hearing grossly intact. MOUTH: Oropharynx is normal. NECK: No adenopathy, no JVD. CHEST: Chest with clear breath sounds bilaterally. No wheezes, rales, or rhonchi. CARDIAC: Regular rate and rhythm. S1 and S2, without murmurs, gallops, or rubs. VASCULAR: No Edema. Peripheral pulses normal and equal in all extremities. ABDOMEN: Soft, without detectable tenderness. No sign of distention. No rebound or guarding, and no masses palpated. Bowel Sounds normal. MUSCULOSKELETAL: Good range of motion of all major joints. Extremities without clubbing, cyanosis or edema. NEUROLOGIC EXAM: Alert and oriented x 3. No focal sensory or strength deficits. Speech normal. Follows commands. PSYCHIATRIC: Mood normal. SKIN: No rash or lesions. - Constitutional Vitals: Temp Pulse Resp BP Pulse Ox 98.9 F 85 16 132/87 96 08/07/17 06:43 08/07/17 06:43 08/07/17 06:43 08/07/17 06:43 08/07/17 06:43 Plan Activity: advance as tolerated, fall precautions Diet: low fat Special Instructions: record daily weights, record daily BP diary, smoking cessation, other (quit ETOH) Follow up with: PRIMARY CARE, [Primary Care Provider] - 3-5 Days NAVI ROCA MD [Staff Physician] - 14 Days Prescriptions: RX: Ondansetron [Zofran ODT TAB] 4 mg PO Q8HR PRN #15 tab.rapdis PRN Reason: Nausea And Vomiting RX: Pantoprazole [Protonix TAB] 40 mg PO QDAY #30 tablet
[2017-08-07] MEDS ORDERED: PROTONIX PO SCH (22:00)
--- NOTE | 2017-08-11 10:15 | Query- Nutrition ---
Dear ____Lillian Date:____08/11/17 Label Sewer/CDS: Jos / Eric Phone#:___[phone] Exercise your independent professional judgment when responding to query. Questions asked do not imply a particular answer is desired or expected. We greatly appreciate your clarification on this issue. Clinical Documentation States: 51 year old male was admitted on 08/05/17 The discharge summary (Dr. Snyder) states " 51 YO Male with HTN, ETOH Dependence, Nicotine Dependence, Malnutrition presents to ED for evaluation. Discharge diagnosis Acute GI bleed. Secondary to pyloric ulcer Pyloric ulcer " Clinical Findings Show: Albumin: 2.9 Please select the most appropriate option 3 [] Mild Malnutrition [] Mild - Moderate Malnutrition [X] Moderate - Severe Malnutrition [] Severe Malnutrition Serum Albumin 2.8 to 3.4 g/dl or Pre-albumin 5 to 17 mg/dl1,2 Inadequate nutritional intake1,2,3,4 NPO > 5 days Weight loss: 5% in 1 month or 7.5% in 3 months or 10% in 6 months1, 3,4 BMI 16 to 18.4 or Weight <90% of ideal body weight1,2,3,4 Serum Albumin < 2.8 g/ dl1,2 Lymphocytes < 1500/ L2 Inadequate nutritional intake3, high stress e.g. major trauma, sepsis,pancreatitis, jules etc. Decubitus ulcers1,2, , skin breakdown2, easy hair pluckability2 Weight <80% standard for height2 Triceps skin fold <3 mm2 Mid-arm muscle circumference <15 cm2 Creatinine-height index <60% standard2 [ ] Cachexia [ ] Emaciated w/Malnutrition [ ] Other: [ ] Unable to determine [ ] Comment/Explanation: Present on Admission: [ X] Yes (Y) [ ] Clinically undeterminable (W) [ ] No (N) Please also document response in your Progress Notes and/or Discharge Summary and indicate if the condition was present on admission. MTDD
== END 2017-08-07 13:30 | disposition home or self-care (01) | DRG 377 ==
LOC: ED 11:48 → 3A 16:28
PROVIDERS: ADMIT Internal Medicine; ATTEND Internal Medicine
PROC: 0DB78ZX Excision of Stomach, Pylorus, Via Natural or Artificial Opening Endoscopic, Diagnostic (ICD-10-PCS; principal; 2017-08-06)
PROC: 30233N1 Transfusion of Nonautologous Red Blood Cells into Peripheral Vein, Percutaneous Approach (ICD-10-PCS; 2017-08-06)
DX: K25.4 Chronic or unspecified gastric ulcer with hemorrhage (principal); E43 Unspecified severe protein-calorie malnutrition; D62 Acute posthemorrhagic anemia; E86.0 Dehydration; F17.210 Nicotine dependence, cigarettes, uncomplicated; F10.20 Alcohol dependence, uncomplicated; Y90.9 Presence of alcohol in blood, level not specified; I10 Essential (primary) hypertension; K21.9 Gastro-esophageal reflux disease without esophagitis; K44.9 Diaphragmatic hernia without obstruction or gangrene
CPT/HCPCS: 36415; 70450; 74177; 80048; 80053; 80307; 81015; 82378; 85014; 85018; 85025; 85027; 85610; 86301; 86850; 86900; 86901; 86920; 88305; 88342; 93005; 93010; 96361; 96374; C9113; J2270; J2704; J3411; J7030; J7040; P9016; Q9967